=== PATIENT | female | born 1950 | race Two or more races ===

== ENCOUNTER 2021-01-02 12:57 | Emergency (ER) | payer OTHER, MEDICAID ==
[~2021-01-02] VITALS: Ht 160 cm; Wt 81.6 kg
[2021-01-02 14:44] LABS: Urine Bacteria FEW /hpf (None Seen); Urine Blood 3+ /uL (Negative); Urine Specific Gravity 1.004 (1.001-1.035); Urine WBC 51 /hpf (0 - 5)
[2021-01-02 15:02] VITALS: BP 129/86
== END 2021-01-02 17:16 | disposition home or self-care (01) ==
LOC: ER 12:57
DX: N39.0 Urinary tract infection, site not specified (principal); E11.9 Type 2 diabetes mellitus without complications; I10 Essential (primary) hypertension; E78.5 Hyperlipidemia, unspecified
CPT/HCPCS: 81001